=== PATIENT | male | born 1970 | race Asian ===

== ENCOUNTER 2017-01-09 15:51 | Outpatient (CLI) | payer OTHER ==
--- NOTE | 2017-01-10 10:58 | Diagnostic Imaging Report ---
Cervical spine (5 views) HISTORY: Pain There is slight reversal of the cervical lordosis that may be associated with spasm. Alignment is normal. Disc spaces are relatively maintained. Degenerative spur formation noted about the endplates of C5, C6, C7. Mild neural foraminal encroachment at C5-6 on the right. Prevertebral soft tissues appear normal. IMPRESSION: 1. Degenerative changes 2. No acute abnormalities
== END 2017-01-09 16:20 | disposition home or self-care (01) ==
LOC: RAD 15:51
PROVIDERS: ATTEND Internal Medicine
DX: M47.892 Other spondylosis, cervical region (principal)
CPT/HCPCS: 72050-TC